=== PATIENT | male | born 1960 ===

== ENCOUNTER 2016-07-16 12:55 | Inpatient (IN) ==
[2016-07-16] MEDS ORDERED: ZALEPLON 5 MG CAPSULE PO PRN (20:02)
[2016-07-16] MEDS ORDERED: ONDANSETRON 4 MG/2 ML VIAL IV PRN (20:02)
[2016-07-16] MEDS ORDERED: LORazepam 0.5 MG TABLET PO PRN (20:11)
--- NOTE | 2016-07-16 20:17 | Hospitalist History & Physical ---
Assessment and Plan (1) Abscess Status: Acute Assessment and plan: abscess vs hematoma, plt 80 at [facility], stat us of right LE, Dr. Jason consulted, NPO after MN, vancomycin and meropenem, avoid zosyn due to low plt Current Visit: Yes (2) Pancytopenia Status: Acute Assessment and plan: b12 and folate, repeat cbc, has cirrhosis, pepcid Current Visit: Yes (3) Cirrhosis Status: Acute Assessment and plan: portal htn and enlarged spleen, ascites, check ammonia level, propranolol Current Visit: Yes (4) Cholecystitis Status: Acute Assessment and plan: ct suggest cholecystitis, asymptomatic on exam, has gallstone and elevated total bilirubin and direct bilirubin, us of abdomen looking for dilated duct and confirm cholecystitis, may need ercp Current Visit: Yes (5) Gallstone Status: Acute Current Visit: Yes (6) Elevated bilirubin Status: Acute Assessment and plan: recheck total and direct, us to look for dilated bile ducts Current Visit: Yes (7) Alcoholic Status: Acute Assessment and plan: thiamine and folate, no evidence of withdrawal low dose ativan Current Visit: Yes History of Present Illness Chief complaint: right leg abscess History of present illness: Mr. Casey is a 55 year old male admitted to [facility] for right leg edema. Patient reports having bruising spontaneously and he is knee extending down his right leg that he became concerned about. Patient was admitted to [facility] for right lower extremity cellulitis and treated with clindamycin, vancomycin and Zosyn. Swelling in his right lower extremity became worse. CT on July 16, 2016 showed possible abscess versus hematoma with subcutaneous edema compatible with cellulitis [facility] requested a transfer over here for further management and treatment. Have spoke with personally to Dr. Jason and he will examine the patient. Patient had elevated bilirubin and liver enzymes. CT of his abdomen on July 13 cholecystitis with gallstones and evidence of cirrhosis with portal hypertension and esophageal varices. I will ask Dr. Blair to see him for his anemia and esophageal varices as he potentially needs banding. Laboratory values from today showed a hemoglobin of 11 with platelets of 80. All the labs will be repeated. Home Medications Medication Instructions Recorded Confirmed Type Acetaminophen Tab [Tylenol Tab] 650 mg PO Q6H PRN 07/16/16 07/16/16 History Clindamycin Phosphate/D5w 600 mg IV Q8H 07/16/16 07/16/16 History [Clindamycin Inj] Enoxaparin [Lovenox] 30 mg SUBCUT Q24H 07/16/16 07/16/16 History Folic Acid Tab 1 mg PO DAILY 07/16/16 07/16/16 History LORazepam TAB [Ativan Tab] 0.5 mg PO Q6H PRN 07/16/16 07/16/16 History Pantoprazole Inj [Protonix Inj] 40 mg IV DAILY 07/16/16 07/16/16 History Uziewltbgocc-Daqe-Dhiaqvon,Iso 4.5 gm IV Q8H 07/16/16 07/16/16 History [Zosyn 4.5 gm/100 ml Galaxy Bag] Potassium Chloride [Klor-Con] 20 meq PO BID 07/16/16 07/16/16 History Ranitidine Tab [Zantac Tab] 150 mg PO BEDTIME 07/16/16 07/16/16 History Sennosides/Docusate Sodium 1 each PO BEDTIME 07/16/16 07/16/16 History [Senna-Docusate Sodium Tablet] Sodium Chloride 0.9% [Sodium 1,000 ml IV Q10H 07/16/16 07/16/16 History Chloride 0.9% Inj] Thiamine Tab [Vitamin B1 Tab] 100 mg PO DAILY 07/16/16 07/16/16 History Vancomycin/0.9 % Sod Chloride 1 gm IV Q12H 07/16/16 07/16/16 History [Vanco 1 Gram/250 ml-0.9% NaCl] Allergies Allergy/AdvReac Type Severity Reaction Status Date / Time No Known Allergies Allergy Verified 07/16/16 20:17 Medical,Surgical,& Family Hx - Medical History Other: History of: Miscellaneous Medical Problems (none reported by patient ) - Surgical History Orthopedic Surgeries: Surgical HX of;: Orthopedic Surgery Additional Surgical History: skin graft to right lower extremity - Family History Family History: Reports;: Family Cancer (father colon cancer ) Denies;: Family Diabetes, Family Heart Disease, Family Stroke - Social History Smoking Status: Current every day smoker Frequency of Alcohol Use: Frequently (daily) Type of Drug Use: None Marital Status: Single Lives With:: Alone Functional capacity: independent ambulation - Constitutional Constitutional: Present: fever(s), weight gain. Absent: headache(s) - EENT Eyes: Absent: blurry vision, diplopia Ears: Absent: decreased hearing, ear discharge Nose, mouth and throat: Present: sore throat. Absent: headache(s) - Cardiovascular Cardiovascular: Present: edema. Absent: chest pain at rest, dyspnea, dyspnea on exertion - Respiratory Respiratory: Absent: cough, dyspnea, dyspnea on exertion - Gastrointestinal Gastrointestinal: Absent: constipation, diarrhea, nausea, vomiting - Genitourinary Genitourinary: Absent: difficulty urinating, dysuria - Neurological Neurological: Absent: confusion, headache(s), syncope - Psychiatric Psychiatric: Absent: anxiety, depression - Endocrine Endocrine: Absent: fatigue, heat intolerance - Hematologic/Lymphatic Hematologic/Lymphatic: Present: easy bleeding, easy bruising Exam - Constitutional General appearance: normal weight, no acute distress - Head Head exam: Present: normal inspection, normocephalic - Eye Eye exam: Present: EOMI, scleral icterus Pupils: Present: FRANCIA, normal accommodation - ENT ENT exam: Present: normal exam, normal external ear exam - Neck Neck exam: Absent: lymphadenopathy, thyromegaly - Respiratory Respiratory exam: Present: clear to auscultation bilaterally. Absent: rhonchi, wheezes - Cardiovascular Cardiovascular exam: Present: regular rate and rhythm. Absent: systolic murmur - GI/Abdominal GI/Abdominal exam: Present: normal bowel sounds, ascites, distended - Extremities Exam Extremities exam: Present: normal capillary refill, edema - Neurological Exam Neurological exam: Present: alert, oriented X3, CN II-XII intact, reflexes normal. Absent: motor sensory deficit - Psychiatric Psychiatric exam: Present: normal affect, normal mood - Skin Skin exam: Present: warm, other (abscess verses hematoma ) Results - Labs Labs: White count 3.4, platelets 80, creatinine unknown, sodium 137, potassium 3.5, BUN 6, total bili 9.5, alk phos 157, AST 78, ALT 30 direct bili 7 - Diagnostic Findings Procedure: CT Abdomen and Pelvis: report reviewed by me (Hepatic cirrhosis with portal hypertension and splenic and esophageal varices present, gallstones with evidence of cholecystitis.), CT: report reviewed by me (Right lower extremity and abscess versus hematoma.) Quality Measures - VTE Contraindication to Mechanical VTE Prophylaxis: Local Inflammation
--- NOTE | 2016-07-16 21:02 | General Surgery Consult Note ---
Assessment and Plan - Time spent with patient Time spent with patient: Less than 30 minutes (1) Hematoma of right lower extremity Status: Acute Assessment and plan: Hematoma of the right leg probably secondary to trauma Plan: We will see what his clotting studies are before considering any evacuation of this hematoma. There would be a chance that with time it would liquefy could be aspirated but this is probably too early for that to occur. Surgical evacuation could be performed if we fill the need to do that. Current Visit: Yes Qualifiers: Encounter type: initial encounter Qualified Code(s): S80.11XA - Contusion of right lower leg, initial encounter (2) Gallstone Status: Acute Assessment and plan: Cholelithiasis on CT scan Plan: At this point I do not see a strong urgency for a major workup on his gallbladder. I think he is asymptomatic from it and because of the liver disease in the varicosities in the area it would be extremely dangerous to attempt a cholecystectomy anyway. Current Visit: Yes Qualifiers: Cholecystitis presence: without cholecystitis Biliary obstruction: without biliary obstruction Qualified Code(s): K80.20 - Calculus of gallbladder without cholecystitis without obstruction (3) Cirrhosis Status: Acute Assessment and plan: Cirrhosis of the liver. CT scan suggest cirrhosis of the liver with varicosities of the stomach and the esophagus. Risk of bleeding with any intervention in this area is high and would not be of any significance value at this time. Current Visit: Yes Qualifiers: Hepatic cirrhosis type: alcoholic cirrhosis History of Present Illness Chief complaint: Mass of the right lateral leg History of present illness: Mr. Casey is a 55 year old male whom we were asked to see for a swelling of the right lateral leg etiology of which is unclear. Ultrasounds were performed at this which shows shows a fluid collection in this region. Patient has a history of liver disease but we do not know what his clotting studies are at this time and his platelet count at [facility] was 80,000. There is evidence of a good bit of bruising of the right lower extremity which he denies but around the knee and upper thigh areas of multiple bruises and then around the right leg is this mass on the lateral aspect which is underneath no skin graft area. From the appearance here I suspect this is a hematoma secondary to trauma and not represents an abscess at this time. He says it has only been there a week and it may be too early for her to just be evacuated with a needle. Before planning any type of surgery on will have to see what he is clotting studies are in his platelets and maybe even assess his platelet function. Be a chance that we could stir up some bleeding if he has a low platelets are elevated clotting studies. Patient also had a CT scan abdomen pelvis which confirmed the cirrhosis and varicosities in the esophagus and the stomach. He did show that he has some gallstones and although a workup is being planned on the gallbladder I think it is not necessary. He has some chronic gallbladder disease but the risk of surgery of the gallbladder with the cirrhotic liver is extremely dangerous for risk of bleeding. I do not think that unless he was purely symptomatic from the gallbladder that it would be worthwhile pursuing any surgery on the gallbladder. I think this area can just be observed for now. Home Medications Medication Instructions Recorded Confirmed Type Acetaminophen Tab [Tylenol Tab] 650 mg PO Q6H PRN 07/16/16 07/16/16 History Clindamycin Phosphate/D5w 600 mg IV Q8H 07/16/16 07/16/16 History [Clindamycin Inj] Enoxaparin [Lovenox] 30 mg SUBCUT Q24H 07/16/16 07/16/16 History Folic Acid Tab 1 mg PO DAILY 07/16/16 07/16/16 History LORazepam TAB [Ativan Tab] 0.5 mg PO Q6H PRN 07/16/16 07/16/16 History Pantoprazole Inj [Protonix Inj] 40 mg IV DAILY 07/16/16 07/16/16 History Xdpnctablzfq-Qfvz-Hdrwphql,Iso 4.5 gm IV Q8H 07/16/16 07/16/16 History [Zosyn 4.5 gm/100 ml Galaxy Bag] Potassium Chloride [Klor-Con] 20 meq PO BID 07/16/16 07/16/16 History Ranitidine Tab [Zantac Tab] 150 mg PO BEDTIME 07/16/16 07/16/16 History Sennosides/Docusate Sodium 1 each PO BEDTIME 07/16/16 07/16/16 History [Senna-Docusate Sodium Tablet] Sodium Chloride 0.9% [Sodium 1,000 ml IV Q10H 07/16/16 07/16/16 History Chloride 0.9% Inj] Thiamine Tab [Vitamin B1 Tab] 100 mg PO DAILY 07/16/16 07/16/16 History Vancomycin/0.9 % Sod Chloride 1 gm IV Q12H 07/16/16 07/16/16 History [Vanco 1 Gram/250 ml-0.9% NaCl] Allergies Allergy/AdvReac Type Severity Reaction Status Date / Time No Known Allergies Allergy Verified 07/16/16 20:17 Medical,Surgical,& Family Hx - Medical History Psychological: No history of: Anxiety Disorders, ADHD, Behavior Problems, Bipolar Disorder, Depression, Previous Suicide Attempt, Psychiatric/Substance Abuse Tx, Schizophrenia, Violent Behavior, Psychiatric Problems Gastrointestinal: History of: Liver Problems (cirrhosis) Musculoskeletal: History of: Musculoskeletal Problems (arthritis) No history of: Amputation Other: History of: Miscellaneous Medical Problems (none reported by patient ) - Surgical History Cardiac Surgeries: Patient Denies: Cardiac Catheterization Neurologic Surgeries: Patient denies: Neurologic Surgery HEENT Surgeries: Patient denies: Eye Surgery, Tonsilectomy & Adenoidectomy Orthopedic Surgeries: Surgical HX of;: Orthopedic Surgery - Family History Family History: Reports;: Family Cancer (father colon cancer ) Denies;: Family Diabetes, Family Heart Disease, Family Stroke - Social History Smoking Status: Current every day smoker Frequency of Alcohol Use: Frequently (daily) Type of Drug Use: None 12 point system: reviewed and no additional remarkable complaints except as stated Exam - Constitutional Vitals: Period Temp Pulse Resp BP Sys/Huerta Pulse Ox Last 24 Hr 99.8 F 98 22 142/73 99 General appearance: mild distress - Head Head exam: Present: normal inspection - ENT ENT exam: Present: normal exam - Neck Neck exam: Present: normal inspection - Respiratory Respiratory exam: Present: rales, rhonchi - Cardiovascular Cardiovascular exam: Present: RRR - GI/Abdominal GI/Abdominal exam: Present: normal bowel sounds, soft. Absent: tenderness - Extremities Exam Extremities exam: Present: other (Bruising both lower extremities but more on the right especially in the thigh and around the knee. There is also skin graft on the lateral aspect of the right leg with a mass in the upper part of that leg on the lateral aspect that is soft and pliable without heat or induration present.) - Back Exam Back exam: Present: normal inspection - Neurological Exam Neurological exam: Present: alert, oriented X3, CN II-XII intact - Skin Skin exam: Present: normal color, warm, dry Quality Measures - VTE Contraindication to Mechanical VTE Prophylaxis: Local Inflammation Results - Labs Lab Results: I have reviewed the past 24 hour labs
[2016-07-16] MEDS: SODIUM CHLORIDE 0.45% 1,000 ML IV SCH (21:17)
[2016-07-16] MEDS: PROPRANOLOL 10 MG TABLET PO SCH (21:18)
[2016-07-16] MEDS: FAMOTIDINE 20 MG TABLET PO SCH (21:18)
[2016-07-16] MEDS: LACTULOSE 20 GM/30 ML UDCUP PO SCH (21:18)
[2016-07-16] MEDS: MEROPENEM 1,000 MG in SODIUM CHLORIDE 0.9% 100 ML IV SCH (21:20)
--- NOTE | 2016-07-16 21:20 | XRay Report ---
XR chest 1V portable Indication: Shortness of breath Comparison: Chest x-ray 09/14/2013 Technique: Portable AP chest was performed. Findings: The heart size appears within normal limits. Pulmonary vasculature demonstrates no specific abnormality. Hilar structures demonstrate fairly symmetric appearance. The lungs appear clear. Bones and soft tissues demonstrate healing or remote rib fracture involving the posterior lateral right eighth rib. Impression: 1. No evidence of acute pathology. 07/16/2016 8:50 PM PROCEDURE INTERPRETED AT [facility] DEPARTMENT OF RADIOLOGY Final Report Signed by: Dr. Edison Mandujano
[2016-07-16 21:25] LABS: Basophils % 0.8 % (0.0-0.8); Eosinophils # 0.1 10*3/uL (0.0-0.87); Eosinophils % 1.8 % (0.00-10.9); Hematocrit 32.8 VOL% (42.0-52.0); Hemoglobin 11.3 GM/DL (14.0-18.0); Immature Granulocytes % 0.6 %; Immature Granulocytes Absolute 0.03 #; Lymphocytes # 0.6 10*3/uL (1.4-4.0); Lymphocytes % 11.8 % (21.2-54.2); Mean Corpuscular HGB Conc 34.5 GM/DL (32-36); Mean Corpuscular Hemoglobin 33 PG (27-34); Mean Corpuscular Volume 95.6 FL (87-102); Mean Platelet Volume 10.3 FL (9.6-12.0); Monocytes # 0.9 10*3/uL (0.11-0.8); Monocytes % 18.5 % (1.7-12.7); Neutrophils # 3.3 10*3/uL (1.4-7.4); Neutrophils % 66.5 % (38.7-73.9); Red Blood Count 3.43 MC/CUMM (3.8-5.5); Red Cell Distribution Width 20.2 % (9.3-17.3)
[2016-07-16 21:43] LABS: Platelet Count 84 T/CUMM (130-400)
[2016-07-16 22:07] LABS: Albumin 2.4 G/DL (3.4-5.0); Bilirubin,Total 10.7 MG/DL (0.2-1.0); Calcium 7.7 MG/DL (8.5-10.1); Magnesium 1.6 MG/DL (1.8-2.4); Osmolality,Calculated 272.7 MOS/KG (273-304); Potassium 3.5 MMOL/L (3.5-5.1); Thyroid Stimulating Hormone 0.368 uIU/ml (0.358-3.74); Total Protein 6.9 G/DL (6.4-8.3)
[2016-07-16 22:11] LABS: Folate 8.6 NG/ML (5.4-24.0)
[2016-07-16 22:57] LABS: Eosinophils 2 % (0-10); Lymphocytes 13 % (20-55); Platelet Estimate Decreased; Segmented Neutrophils 78 % (50-85); Total Cells Counted 100
[2016-07-17] MEDS: VANCOMYCIN INJ 1,250 MG in SODIUM CHLORIDE 0.9% 250 ML IV SCH ×2 (00:59→12:18)
[2016-07-17 01:46] LABS: Apearance,Urine CLEAR (Clear); Blood, Urine Negative (Negative); Glucose,Urine (UA) Negative (Negative); Ketones,Urine Negative (Negative); Nitrite,Urine Negative (Negative); Protein,Urine Negative; RBC,Urine <1 /HPF (0-4); Squamous Epithelial Cell,Urine Occasional /HPF (0-10); Urine Color Amber (Yellow); Urine Specific Gravity 1.011 (1.001-1.035)
[2016-07-17 01:47] LABS: Bilirubin,Urine Small mg/dL (Negative)
[2016-07-17] MEDS: MEROPENEM 1,000 MG in SODIUM CHLORIDE 0.9% 100 ML IV SCH ×3 (05:01→21:54)
[2016-07-17] MEDS: ACETAMINOPHEN 325 MG TABLET PO PRN ×2 (05:03→21:51)
--- NOTE | 2016-07-17 06:04 | Ultrasound Report ---
Referring Physician: Lydia Durbin Exam: US right lower extremity nonvascular ultrasound Date: July 16, 2016 Reason: Abscess versus hematoma Comparison: Outside CT of the lower extremities July 16, 2016 Preliminary report was provided by [facility]. Technique: Grayscale and color Doppler flow images of the right lower extremity were obtained. Ultrasound images were captured and stored. Findings: Inferior and lateral to the right knee, there is a complex fluid collection which measures 14.5 x 7.4 x 2 cm. No internal vascularity is seen, and this is favored to represent a hematoma. An abscess is in the differential but is felt less likely. Please correlate with clinical findings/ history. Impression: There is a complex fluid collection at the right lower extremity, inferolateral to the right knee. This most consistent with a hematoma. An abscess is in the differential but is felt less likely. Please correlate with clinical findings/history. PROCEDURE INTERPRETED AT [facility] DEPARTMENT OF RADIOLOGY Final Report Signed by: Dr. Keyla William
[2016-07-17 06:55] LABS: Basophils % 0.5 % (0.0-0.8); Eosinophils # 0.2 10*3/uL (0.0-0.87); Eosinophils % 3.7 % (0.00-10.9); Hematocrit 31.1 VOL% (42.0-52.0); Hemoglobin 10.9 GM/DL (14.0-18.0); Immature Granulocytes % 0.9 %; Immature Granulocytes Absolute 0.05 #; Lymphocytes # 0.7 10*3/uL (1.4-4.0); Lymphocytes % 13.1 % (21.2-54.2); Mean Corpuscular Hemoglobin 32 PG (27-34); Mean Corpuscular Volume 92.3 FL (87-102); Mean Platelet Volume 10.2 FL (9.6-12.0); Monocytes # 1.1 10*3/uL (0.11-0.8); Monocytes % 18.7 % (1.7-12.7); Neutrophils # 3.6 10*3/uL (1.4-7.4); Neutrophils % 63.1 % (38.7-73.9); Platelet Count 87 T/CUMM (130-400); Red Blood Count 3.37 MC/CUMM (3.8-5.5); White Blood Count 5.6 T/CUMM (4-12)
[2016-07-17 07:01] LABS: INR 1.7; PT Patient Result 18.3 SECS; Partial Thromboplastin Time 39.7 SECS (0-40)
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
[2016-07-17 07:27] LABS: Alanine Aminotransferase 30 U/L (16-61); Albumin 2.1 G/DL (3.4-5.0); Alkaline Phosphatase 136 U/L (45-117); Aspartate Amino Transferase 94 U/L (0-37); Blood Urea Nitrogen 6 MG/DL (7-18); Calcium 7.2 MG/DL (8.5-10.1); Cholesterol < 50 MG/DL (50-200); Glucose 83 MG/DL (74-106); HDL Cholesterol < 10 MG/DL (40-60); Osmolality,Calculated 269.8 MOS/KG (273-304); Potassium 3.6 MMOL/L (3.5-5.1); Sodium 137 MMOL/L (136-145); Triglycerides 76 MG/DL (2-150); VLDL CHOLESTEROL 15.2 MG/DL
[2016-07-17 07:28] LABS: Eosinophils 6 % (0-10); Lymphocytes 12 % (20-55); Segmented Neutrophils 61 % (50-85); Total Cells Counted 100
[2016-07-17 07:29] LABS: Hypochromasia 1+; Platelet Estimate Decreased
[2016-07-17 08:18] LABS: AFP Tumor 2.8 NG/ML (0-8)
[2016-07-17 08:32] LABS: % Iron Saturation 47.2 % (18-50); Albumin 2.2 G/DL (3.4-5.0); Bilirubin,Direct 7.3 MG/DL (0.0-0.20); Bilirubin,Indirect 4.1 MG/DL (0.0-1.0); Bilirubin,Total 11.4 MG/DL (0.2-1.0); Total Protein 6.5 G/DL (6.4-8.3)
--- NOTE | 2016-07-17 08:42 | Ultrasound Report ---
US abdomen Indication: CBD dilatation, gallstone, cirrhosis, hepatic duct Comparison: Ultrasound abdomen dated September 14, 2013. Technique: Multiple longitudinal and transverse real-time sonographic images of the abdomen are obtained. Findings: The liver measures 15.2 cm and demonstrates increased heterogeneous echogenicity without focal abnormality on submitted images. Question chronic portal vein occlusion. Small-volume cholelithiasis noted. There is gallbladder wall thickening without evidence of significant gallbladder distention. The common bile duct measures 0.6 cm in diameter. There is no evidence of intrahepatic ductal dilatation. The right and left kidneys measure 11.5 cm and 9.9 cm, respectively. There is no evidence of hydronephrosis. The spleen measures 14 cm without focal abnormality. Evaluation of the pancreas limited secondary to bowel gas.. IVC and aorta: Visualized portions grossly unremarkable. No evidence of ascites. IMPRESSION: Heterogeneous increased echogenicity of the liver consistent with cirrhosis/fibrofatty change. There is mild splenomegaly without evidence of ascites. Question chronic portal venous occlusion. There is small-volume cholelithiasis without significant gallbladder distention. There is wall thickening of the gallbladder. Gallbladder wall thickening is nonspecific and can be seen with etiology ranging from liver disease to cholecystitis. PROCEDURE INTERPRETED AT [facility] DEPARTMENT OF RADIOLOGY Final Report Signed by: Dr Julio Cesar Lambert
[2016-07-17 08:50] LABS: Hepatitis A Ab IgM Quant 0.06 Index; Hepatitis A Ab IgM Result Negative (Negative); Hepatitis B Core IgM Result Negative (Negative); Hepatitis B Surface Ag Quant < 0.10 Index; Hepatitis B Surface Ag Result Negative (Negative); Hepatitis C Virus Ab Quant 0.17 Index; Hepatitis C Virus Ab Result Negative (Negative)
[2016-07-17] MEDS: PROPRANOLOL 10 MG TABLET PO SCH ×3 (09:03→21:52)
[2016-07-17] MEDS: LACTULOSE 20 GM/30 ML UDCUP PO SCH ×3 (09:03→21:49)
[2016-07-17] MEDS: FAMOTIDINE 20 MG TABLET PO SCH ×2 (09:03→21:49)
[2016-07-17] MEDS: THIAMINE 100 MG TABLET PO SCH (09:03)
[2016-07-17] MEDS: FOLIC ACID 1 MG TABLET PO SCH (09:03)
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
[2016-07-17] MEDS ORDERED: SKIN HEALING OINT (AQUAPHOR) 50 GM TUBE TOP PRN (12:30)
[2016-07-17] MEDS: SODIUM CHLORIDE 0.45% 1,000 ML IV SCH (15:36)
[2016-07-18] MEDS: VANCOMYCIN INJ 1,250 MG in SODIUM CHLORIDE 0.9% 250 ML IV SCH ×2 (00:01→12:25)
[2016-07-18] MEDS: MEROPENEM 1,000 MG in SODIUM CHLORIDE 0.9% 100 ML IV SCH (04:52)
--- NOTE | 2016-07-18 07:00 | Gastrointestinal Progress Note ---
Assessment and Plan (1) Alcoholic cirrhosis of liver Status: Acute Assessment and plan: As mentioned above watch this patient with supportive care. I do not believe that he would benefit from an ERCP at this time. MELD score in this patient calculates currently to 22. This would be referrable to Liver Transplant were the patient 6 months off ETOH. We will continue to watch his liver function tests which I believe should peak in the next day or 2 and start improving over time. It is difficult to gauge how much improvement in function will be restored as a result of being off alcohol. We will continue to monitor. 07/18/16--The patient is doing fine this morning. I do not recall him being confused but he may been on lactulose at the time that I saw him yesterday. He does not have a documented ammonia levels being elevated here at this hospital. This may have been available at the [facility] but I am not sure that he needs the lactulose. We frankly discussed that he would not be alive in another 2 years if he continues drinking and I think this is being generous. We have little else to offer here from a GI standpoint aside from propranolol to help decrease the pressure in his esophageal varices. Ultrasound does not show any masses within the liver nor is her ductal dilatation although the patient does have gallstones he does not have abdominal pain in association with them and they are not obstructing him. The picture is consistent with alcoholic hepatitis and cirrhosis. He needs to stop drinking immediately. This was emphasized to him. He can follow-up in my office another 2 months to 10 weeks. We will obtain liver function tests at that time. He is hepatitis A , B, and C negative. While his iron studies are high with saturation 47% they do not quite meet my criteria for hemochromatosis. He can be discharged at this time from my standpoint. I have written him prescriptions for propranolol , pantoprazole, and a multivitamin. These have been placed on the front of the chart. Current Visit: Yes (2) Esophageal varices in alcoholic cirrhosis Status: Acute Assessment and plan: This was seen on the patient's CT scan. He is not significantly anemic ( hematocrit between 31 and 32%). At this time nor is he having significant rectal bleeding. He will need to be on a beta-stan walking out the door, preferably a non-specific beta-stan such as propranolol or Naldolol. We may need to consider doing a upper endoscopy for potential banding if the patient's hematocrit should drop precipitously. Or if he becomes significantly more anemic. 07/18/16--Propranolol prescription written. His heart rate is at target just above 60. I will sign off at this time. Please let me know if I can be of further help and I will be seeing this patient in follow-up. Current Visit: Yes (3) Cholelithiasis Status: Acute Assessment and plan: While the patient does have gallstones, he has no significant ductal dilatation especially given his bilirubin of 10-11. This indicates that these changes are likely due to the underlying cirrhosis. He will need to discontinue drinking. The patient has no right upper quadrant pain, a HIDA scan might be able to tell if there was a decrease in the gallbladder function however in order to process the dye this needs to uptake in the liver and with a bilirubin of 11 the liver uptake will not be avid enough to concentrate the dye. I've canceled this test for now. 07/18/16--As noted above. Laboratories from today are pending but will likely not change his current management. Will sign off for now. Current Visit: Yes (4) Elevated bilirubin Status: Acute Assessment and plan: This is likely due to the underlying alcoholic hepatitis with US back that shows no significant ductal dilation (CBD = 6 mm, no intrahepatic ductal dilation). We will simply watch this patient off of alcohol intake. Monitor his bilirubin with supportive care and hopefully this will bounce back to some degree. With his current drinking history he is not a candidate for transplant. With his history of esophageal varices discovered on CT scan he will likely need nonspecific beta stan prophylaxis for esophageal bleeding. Continue to observe. Hopefully, as an outpatient he can continue to maintain sobriety. Current Visit: Yes (5) Alcoholic Status: Acute Assessment and plan: The patient states that he has been thinking of discontinuing his drinking. I have tried to encourage him to do just that, significant amount of damage has been done to the liver already, and it may be difficult for him to discontinue on his own. He may be candidate for inpatient alcohol rehab. 07/18/16--patient may be a candidate for alcohol rehab. Is unclear whether he is going to need ongoing antibiotics for his leg-- these might be able to be given at the [facility]. Current Visit: Yes Gastroenterology - PN: Subj Interval history: Nathaniel looks rather good today. We did frankly discuss his drinking again and I laid out that he probably needs to stop drinking now or he will likely not survive the next 2 years. I think this is actually being generous. He is a meld score 22. His bilirubin yesterday had gone up from admission. I believe this will probably go down but all it is required is supportive care and discontinuation of drinking in my opinion. We have added propranolol which is covering him as far as his esophageal varices. He seems to be tolerating this well with a heart rate in the 60s-70s. He is eating well and he is not having any black stools or bloody stools. He does not have any abdominal pain. He can be discharged from a GI standpoint at this time. Exam (Progress Note) - Constitutional Vitals: Period Temp Pulse Resp BP Sys/Huerta Pulse Ox Last 24 Hr 97.8 F-100.5 F 68-76 16-20 98-117/52-76 95-98 General appearance: no acute distress, other (Very jaundiced) - Eye Eye exam: Present: EOMI Pupils: Present: FRANCIA - Neck Neck exam: Present: normal inspection - Respiratory Respiratory exam: Present: clear to auscultation bilaterally, decreased breath sounds (At the bases). Absent: rhonchi, stridor, wheezes - Cardiovascular Cardiovascular exam: Present: regular rate and rhythm - GI/Abdominal GI/Abdominal exam: Present: normal bowel sounds, distended, soft. Absent: guarding, tenderness, rebound - Extremities Exam Extremities exam: Present: other (Hematoma is resorbing, a bulge is still present, is wrapped with an Samuel wrap.) - Neurological Exam Neurological exam: Present: alert, oriented X3 Results - Labs CBC & BMP: 07/17/16 06:35 07/17/16 06:35
[2016-07-18 07:17] LABS: Basophils # 0.1 10*3/uL (0.0-0.2); Basophils % 1.1 % (0.0-0.8); Eosinophils # 0.3 10*3/uL (0.0-0.87); Eosinophils % 5.1 % (0.00-10.9); Hematocrit 32.9 VOL% (42.0-52.0); Hemoglobin 11.1 GM/DL (14.0-18.0); Immature Granulocytes % 1.1 %; Immature Granulocytes Absolute 0.06 #; Lymphocytes # 0.6 10*3/uL (1.4-4.0); Lymphocytes % 10.9 % (21.2-54.2); Mean Corpuscular HGB Conc 33.7 GM/DL (32-36); Mean Corpuscular Hemoglobin 32 PG (27-34); Mean Corpuscular Volume 95.1 FL (87-102); Mean Platelet Volume 9.9 FL (9.6-12.0); Monocytes # 0.8 10*3/uL (0.11-0.8); Monocytes % 15.2 % (1.7-12.7); Neutrophils # 3.5 10*3/uL (1.4-7.4); Neutrophils % 66.6 % (38.7-73.9); Platelet Count 89 T/CUMM (130-400); Red Blood Count 3.46 MC/CUMM (3.8-5.5); Red Cell Distribution Width 20.6 % (9.3-17.3); White Blood Count 5.3 T/CUMM (4-12)
[2016-07-18 07:39] LABS: Hypochromasia 1+; Platelet Estimate Decreased
[2016-07-18 07:46] LABS: Bilirubin,Total 12.8 MG/DL (0.2-1.0); Calcium 7.6 MG/DL (8.5-10.1); Osmolality,Calculated 271.7 MOS/KG (273-304); Potassium 3.8 MMOL/L (3.5-5.1); Total Protein 5.9 G/DL (6.4-8.3)
[2016-07-18] MEDS: THIAMINE 100 MG TABLET PO SCH (10:28)
[2016-07-18] MEDS: PROPRANOLOL 10 MG TABLET PO SCH (10:29)
[2016-07-18] MEDS: FAMOTIDINE 20 MG TABLET PO SCH (10:29)
[2016-07-18] MEDS: FOLIC ACID 1 MG TABLET PO SCH (10:29)
[2016-07-18] MEDS: LACTULOSE 20 GM/30 ML UDCUP PO SCH (10:29)
[2016-07-18] MEDS: SODIUM CHLORIDE 0.45% 1,000 ML IV SCH (10:30)
--- NOTE | 2016-07-18 10:47 | General Surgery Progress Note ---
Assessment and Plan (1) Hematoma of right lower extremity Status: Acute Assessment and plan: Hematoma of the right leg probably secondary to trauma Plan: We will see what his clotting studies are before considering any evacuation of this hematoma. There would be a chance that with time it would liquefy could be aspirated but this is probably too early for that to occur. Surgical evacuation could be performed if we fill the need to do that. 07/18/2016 Hematoma of the right leg is stable no sign of any infection at this time. With his liver disease and easy bruise ability I favor not attempting any big surgical evacuation of this at this point and give a little more time to just liquefy at which point we may be able to just aspirated with a needle and not had create a big wound. Will be okay with us if he went home to be followed up later in the clinic for evaluation and see how this is progressing. Feel he needs to continue to wear the white cotton socks on this for some degree of compression Current Visit: Yes Qualifiers: Encounter type: initial encounter Qualified Code(s): S80.11XA - Contusion of right lower leg, initial encounter (2) Gallstone Status: Acute Assessment and plan: Cholelithiasis on CT scan Plan: At this point I do not see a strong urgency for a major workup on his gallbladder. I think he is asymptomatic from it and because of the liver disease in the varicosities in the area it would be extremely dangerous to attempt a cholecystectomy anyway. Current Visit: Yes Qualifiers: Cholecystitis presence: without cholecystitis Biliary obstruction: without biliary obstruction Qualified Code(s): K80.20 - Calculus of gallbladder without cholecystitis without obstruction (3) Cirrhosis Status: Acute Assessment and plan: Cirrhosis of the liver. CT scan suggest cirrhosis of the liver with varicosities of the stomach and the esophagus. Risk of bleeding with any intervention in this area is high and would not be of any significance value at this time. Current Visit: Yes Qualifiers: Hepatic cirrhosis type: alcoholic cirrhosis Subjective Patient reports: Present: feels better, tolerating a regular diet, afebrile Exam - Constitutional Vitals: Period Temp Pulse Resp BP Sys/Huerta Pulse Ox Last 24 Hr 97.7 F-100.5 F 68-76 16-20 98-121/52-76 95-98 General appearance: mild distress - Head Head exam: Present: normal inspection - Eye Eye exam: Present: scleral icterus - ENT ENT exam: Present: normal exam - Neck Neck exam: Present: normal inspection - Respiratory Respiratory exam: Present: rales, rhonchi - Cardiovascular Cardiovascular exam: Present: RRR - GI/Abdominal GI/Abdominal exam: Present: hypoactive bowel sounds, soft. Absent: tenderness - Extremities Exam Extremities exam: Present: other (Hematoma of the right leg is unchanged and stable at this time. No sign of any infection associated with it. Bruising of the right lower extremity is stable and unchanged.) - Back Exam Back exam: Present: normal inspection - Neurological Exam Neurological exam: Present: alert, oriented X3, CN II-XII intact - Skin Skin exam: Present: normal color, warm, dry Results - Labs CBC & BMP: 07/18/16 06:35 07/18/16 06:35 Lab Results: I have reviewed the past 24 hour labs Quality Measures - VTE Contraindication to Mechanical VTE Prophylaxis: Local Inflammation Specialty Discharge - Follow Up or Referrals Follow up with: Hugh Jason MD [Physician] - 1 Month
--- NOTE | 2016-07-18 11:10 | Discharge Summary ---
Hospital Course - Hospital Course Hospital Course: Mr. Casey is a 55 year old male that was admitted to [facility] for right leg edema. Patient reported having bruising spontaneously. He was admitted to [facility] for right lower extremity cellulitis and treated with clindamycin, vancomycin and Zosyn. Swelling in his right lower extremity became worse. CT of his abdomen on July 13 cholecystitis with gallstones and evidence of cirrhosis with portal hypertension and esophageal varices. CT on July 16, 2016 showed possible abscess versus hematoma with subcutaneous edema compatible with cellulitis. Patient had elevated bilirubin and liver enzymes. [facility] requested a transfer here and pt was admitted to hospitalist services for further management and treatment. Surgery and GI were consulted to see patient. Surgery did not recommend any interventions due to patient's liver disease and bleeding issues but suggested close monitoring of patient's conditions. GI did not suggest any interventions due to liver function. Pt was cleared for discharge by both services and was stable to discharge. Pt. is to follow up as an outpatient for evaluation. MD to follow Diagnosis - Discharge Diagnosis (1) Alcoholic hepatitis Status: Acute (2) Pancytopenia Status: Acute (3) Cirrhosis Status: Acute (4) Alcoholic Status: Acute (5) Hematoma of right lower extremity Status: Acute (6) Cellulitis of right lower extremity Status: Acute Specialty Discharge - Follow Up or Referrals Follow up with: Hugh Jason MD [Physician] - 08/20/16 10:00 am ([facility] [employer] [facility] ALL [facility]) Discharge Plan - Discharge Data Disposition: Disch To Home/Self Care Condition at Discharge: Stable Discharge Diet: heart healthy Activity: resume usual activities as tolerated Hygiene: no restrictions Weight Bearing at Discharge: weight bear as tolerated Driving: not until seen by doctor Contact your physician if you experience:: fever over 101, Bleeding, pain uncontrolled by pain medications - Discharge Medications New Clindamycin Cap [Cleocin Cap] 300 mg PO Q8HR #30 capsule Continue Ranitidine Tab [Zantac Tab] 150 mg PO BEDTIME Potassium Chloride [Klor-Con] 20 meq PO BID Pantoprazole Inj [Protonix Inj] 40 mg IV DAILY Folic Acid Tab 1 mg PO DAILY Sennosides/Docusate Sodium [Senna-Docusate Sodium Tablet] 1 each PO BEDTIME Thiamine Tab [Vitamin B1 Tab] 100 mg PO DAILY LORazepam TAB [Ativan Tab] 0.5 mg PO Q6H PRN PRN Reason: Anxiety Discontinued Acetaminophen Tab [Tylenol Tab] 650 mg PO Q6H PRN PRN Reason: Fever, Headache, Mild Pain Enoxaparin [Lovenox] 30 mg SUBCUT Q24H Clindamycin Phosphate/D5w [Clindamycin Inj] 600 mg IV Q8H Sodium Chloride 0.9% [Sodium Chloride 0.9% Inj] 1,000 ml IV Q10H Vancomycin/0.9 % Sod Chloride [Vanco 1 Gram/250 ml-0.9% NaCl] 1 gm IV Q12H [id number],Iso [Zosyn 4.5 gm/100 ml Galaxy Bag] 4.5 gm IV Q8H - Follow Up or Referral Follow Up: Hugh Jason MD [Physician] - 08/20/16 10:00 am ([facility] [employer] [facility] ALL MEDS) - Forms/Instructions Instructions: Clindamycin (By mouth), Gastritis (DC), Cirrhosis (DC), Gallstones (DC) Exam - Constitutional Vitals: Period Temp Pulse Resp BP Sys/Huerta Pulse Ox Last 24 Hr 98.7 F 79 18 161/70 99 General appearance: normal weight - Head Head exam: Present: normal inspection - Eye Eye exam: Present: EOMI, other (Jaundiced sclera) Pupils: Present: FRANCIA - ENT ENT exam: Present: normal exam - Neck Neck exam: Present: other (Supple neck no JVD midline trachea no adenopathy) - Respiratory Respiratory exam: Present: clear to auscultation bilaterally - Cardiovascular Cardiovascular exam: Present: regular rate and rhythm - GI/Abdominal GI/Abdominal exam: Present: normal bowel sounds, soft, other (Noted a bruise on the right rib cage alongside the bruise on the shoulder and a bruise in the right side laterally) - Extremities Exam Extremities exam: Present: full ROM, other (Patient has a hematoma on the lateral aspect of the upper lower leg. On the right side. This is a hematoma he has a compression stocking on. There is associated differential warmth to it. This could be a superinfection on the trauma that had happened at home. Patient drinks a lot of does not remember hitting himself more than likely he fell down during 1 of his drunken state.) - Neurological Exam Neurological exam: Present: alert, oriented X3, CN II-XII intact - Psychiatric Psychiatric exam: Present: normal affect, normal mood - Skin Skin exam: Present: normal color (Jaundice. She does have liver disease of alcoholism. Because of continued problems with alcohol. I have talked to him regarding abstinence but he is not meeting to that.), warm, dry Discharge Results Procedures and tests throughout hospitalization: Pending Orders 07/16/16 21:07 Blood Culture Stat 07/17/16 07:26 [id number], S Routine Labs on day of discharge: Labs from last 24 hours 07/18/16 07/17/16 11:25 07:26 POC Glucose 157 H Tumor Marker AFP 2.8 MARCIA Screen Negative (<1:160) Hepatitis A IgM Ab Negative Hep Bs Antigen Negative Hep B Core IgM Ab Negative Hepatitis C Antibody Negative Preliminary micro results at discharge 07/16/16 21:07 Blood Culture - Preliminary Blood No growth at 1 day 07/16/16 21:07 Blood Culture - Preliminary Blood No growth at 1 day DS: Provider Date of admission: 07/16/16 18:54 Primary care physician: Clint Ahmadi MD Attending physician on admission: Cristopher Corona MD Consults: 07/16/16 20:02 Consult to Physician [CONS] Routine Comment: cholecystitis, right leg abscess Consulting Provider: Hugh Jason 07/16/16 20:11 Consult to Pharmacy [CONS] Routine Reason for Pharmacy Consult: Dose/Manage Antibiotics Dose/Manage Vancomycin Comment: cirrhosis 07/16/16 20:12 Consult to Physician [CONS] Routine Comment: cirrhosis, anemia, elevated bilirubin,gallstone Consulting Provider: Chele Blair When should Consulting Provider be notified: Now Person Notified: DARY Date Notified: 07/17/16 Time Notified: 09:59 Discharging clinician: Cristopher Corona MD
[2016-07-18 11:45] VITALS: BP 161/70
== END 2016-07-18 15:43 | disposition home or self-care (01) | DRG 603 ==
LOC: N.5E 18:54
PROVIDERS: ADMIT Internal Medicine Infectious Disease; ATTEND Internal Medicine Infectious Disease